=== PATIENT | female | born 1990 | race African-American/Black ===

== ENCOUNTER 2016-09-18 15:41 | Emergency (ER) | payer OTHER ==
[~2016-09-18] VITALS: Ht 170.2 cm; Wt 60.3 kg
[~2016-09-18 15:41] MED LIST: HYDR-2666 PO
[2016-09-18 16:20] VITALS: BP 125/66
--- NOTE | 2016-09-18 16:49 | PHYS DOC ---
Past Medical History Past Medical History: Other Additional Past Medical Histor: miscarriage Past Surgical History: Other Additional Past Surgical Histo: D&C, cerclage Alcohol Use: None Drug Use: None Adult General Chief Complaint Chief Complaint: VAGINAL BLEEDING HPI HPI Patient is a 26 year old female who presents with complaint of vaginal bleeding that happened last week. Patient states that she has not had any bleeding in the past 9 days. Patient states her last menstrual period was in the "middle of June" of this year. The patient mainly came to the emergency department to make sure that her baby was okay. Patient is A3. Patient states that she took a confirmatory test at [facility] but has not had any care for her current . Patient denies any cramping, abnormal vaginal discharge, pain, bleeding, shortness of breath, or fever. Review of Systems Review of Systems Constitutional: Denies fever or chills [] Eyes: Denies change in visual acuity, redness, or eye pain [] HENT: Denies nasal congestion or sore throat [] Respiratory: Denies cough or shortness of breath [] Cardiovascular: Denies chest pain or edema [] GI: Denies abdominal pain, nausea, vomiting, bloody stools or diarrhea [] : Vaginal bleeding 1 week ago, currently resolved, Denies dysuria or hematuria [] Musculoskeletal: Denies back pain or joint pain [] Integument: Denies rash or skin lesions [] Neurologic: Denies headache, focal weakness or sensory changes [] Allergies Allergies Allergies Coded Allergies Type Severity Reaction Last Updated Verified No Known Drug Allergies 11/07/13 No Physical Exam Physical Exam Constitutional: Well developed, well nourished, no acute distress, non-toxic appearance. [] HENT: Normocephalic, atraumatic, bilateral external ears normal, oropharynx moist, no oral exudates, nose normal. [] Eyes: PERRLA, EOMI, conjunctiva normal, no discharge. [] Neck: Normal range of motion, no tenderness, supple, no stridor. [] Cardiovascular:Heart rate regular rhythm, no murmur [] Lungs & Thorax: Bilateral breath sounds clear to auscultation [] Abdomen: Bowel sounds normal, soft, no tenderness, no masses, no pulsatile masses. Pelvic: Declined by patient [] Skin: Warm, dry, no erythema, no rash. [] Back: No tenderness, no CVA tenderness. [] Extremities: No tenderness, no cyanosis, no clubbing, ROM intact, no edema. [] Neurologic: Alert and oriented X 3, normal motor function, normal sensory function, no focal deficits noted. [] Current Patient Data Vital Signs Vital Signs Date Time Temp Pulse Resp B/P Pulse Ox O2 Delivery O2 Flow Rate FiO2 09/18/16 16:20 101 19 125/66 98 Room Air 09/18/16 16:06 98.8 98.8 Lab Values Laboratory Tests Test 09/18/16 15:27 09/18/16 16:15 POC Urine HCG, Qualitative Hcg positive (Negative) Urine Collection Type Unknown Urine Color Yellow Urine Clarity Clear Urine pH 8.5 Urine Specific [place] 1.020 Urine Protein 30mg/dL (NEG-TRACE) Urine Glucose (UA) Negativemg/dL (NEG) Urine Ketones (Stick) Negativemg/dL (NEG) Urine Blood Negative (NEG) Urine Nitrite Negative (NEG) Urine Bilirubin Negative (NEG) Urine Urobilinogen Dipstick 1.0mg/dL (0.2 mg/dL) Urine Leukocyte Esterase Negative (NEG) Urine RBC 0/HPF (0-2) Urine WBC 1-4/HPF (0-4) Urine Squamous Epithelial Cells Mod/LPF Urine Bacteria Few/HPF (0-FEW) Urine Mucus Slight/LPF EKG EKG Not performed [] Radiology/Procedures Radiology/Procedures Limited transabdominal bedside ultrasound performed and interpreted by myself: Intrauterine , heart rate 176 bpm, frequent movements [] Course & Med Decision Making Course & Med Decision Making Pertinent Labs and Imaging studies reviewed. (See chart for details) The patient is approximately 3 months at this time based off of last menstrual period. The patient's urine showed few bacteria without evidence of nitrite or leukoesterase and did contain squamous cells. I believe that the bacteria is likely a contaminant as patient denies any urinary symptoms at this time. We will withhold treatment with antibiotics and advised patient to follow- up in 1-[address] Dyer of [facility] for further care. Advised return emergency department for any worsening symptoms. Patient was understanding and in agreement with treatment plan. Dragon Disclaimer Dragon Disclaimer This electronic medical record was generated, in whole or in part, using a voice recognition dictation system. Departure Departure Impression: Primary Impression: Intrauterine normal Disposition: HOME, SELF-CARE Condition: GOOD Referrals: NO PCP (PCP) MARQUIS DYER MD Patient Instructions: Additional Instructions: Follow-up Dr. Dyer in one to 2 weeks. Be sure to start on a daily vitamin. This can be purchased [id number] at any pharmacy. Be sure that the vitamin contains an iron supplement. Ask your pharmacist if you have any difficulty identifying an appropriate vitamin. Return to the emergency department for any worsening symptoms. Problem Qualifiers Primary Impression: Intrauterine normal Trimester: first trimester Qualified Code: Z34.91 - Encounter for supervision of normal , unspecified, first trimester LOVE PINTO MD Sep 18, 2016 16:49
[2016-09-18 16:53] LABS: BILIRUBIN,URINE NEGATIVE (NEG); GLUCOSE,URINE NEGATIVE (NEG); NITRITE,URINE NEGATIVE (NEG); PH,URINE 8.5; PROTEIN,URINE 30 mg/dL (NEG-TRACE)
[2016-09-18 17:21] LABS: BACTERIA,URINE FEW /HPF (0-FEW); RBC,URINE 0 /HPF (0-2); SQUAMOUS EPITHELIAL CELL,UR MOD /LPF
== END 2016-09-18 17:34 | disposition home or self-care (01) ==
LOC: ER 15:41
DX: O46.91 Antepartum hemorrhage, unspecified, first trimester (principal); Z3A.12 12 weeks gestation of pregnancy
CPT/HCPCS: 81001; 81025; 99285-25

== ENCOUNTER 2017-12-12 16:44 | Emergency (ER) | payer SELFPAY, OTHER ==
[2017-12-12 18:02] LABS: ADD MAN DIFF? NO
[2017-12-12 18:05] LABS: URINE HCG POC HCG NEGATIVE (Negative)
[2017-12-12 18:07] LABS: BASO % 1 % (0-3); EOS # 0.1 x10^3/uL (0.0-0.7); EOS % 1 % (0-3); HEMATOCRIT 43.4 % (36.0-47.0); HEMOGLOBIN 14.6 g/dL (12.0-15.5); LYMPH # 2.1 x10^3/uL (1.0-4.8); LYMPH % 32 % (24-48); MEAN CORPUSCULAR HEMOGLOBIN 33 pg (25-35); MEAN CORPUSCULAR HGB CONC 34 g/dL (31-37); MEAN CORPUSCULAR VOLUME 97 fL (79-100); MONO # 0.5 x10^3/uL (0.0-1.1); MONO % 8 % (0-9); NEUT % 59 % (31-73); PLATELET COUNT 201 x10^3/uL (140-400); RED BLOOD COUNT 4.47 x10^6/uL (3.50-5.40); RED CELL DISTRIBUTION WIDTH 14.3 % (11.5-14.5); WHITE BLOOD COUNT 6.8 x10^3/uL (4.0-11.0)
== END 2017-12-12 20:58 | disposition home or self-care (01) ==
LOC: ER 16:44
DX: N93.8 Other specified abnormal uterine and vaginal bleeding (principal)
CPT/HCPCS: 36415; 81025; 85025; 99283

== ENCOUNTER 2019-03-31 16:05 | Emergency (ER) | payer SELFPAY ==
[~2019-03-31] VITALS: Ht 170.2 cm; Wt 55.8 kg
[~2019-03-31 16:05] MED LIST changes: +AMOX875T PO; -HYDR-2666 PO; +HYDR-2761 PO
--- NOTE | 2019-03-31 16:36 | PHYS DOC ---
Past Medical History Past Medical History: Other Additional Past Medical Histor: miscarriage Past Surgical History: Other Additional Past Surgical Histo: D&C, cerclage Alcohol Use: Occasionally Drug Use: None Adult General Chief Complaint Chief Complaint: ABDOMINAL PAIN HPI HPI 29 female presents to the ER with complaints of left lower quadrant abdominal pain, described as a dull pain. She denies any nausea, vomiting, fever, dysuria, change in bowel habits. She denies any vaginal discharge as well. She states the pain started approximately one month ago been somewhat progressive. Last menstrual period 1 week ago. Nothing makes her pain worse, nothing makes her pain improved. Review of Systems Review of Systems Constitutional: Denies fever or chills [] HENT: Denies nasal congestion or sore throat [] Respiratory: Denies cough or shortness of breath [] Cardiovascular: No additional information not addressed in HPI [] GI: + abdominal pain, no nausea, vomiting, bloody stools or diarrhea [] : Denies dysuria or hematuria [] Musculoskeletal: Denies back pain or joint pain [] Integument: Denies rash or skin lesions [] Neurologic: Denies headache, focal weakness or sensory changes [] All other systems were reviewed and found to be within normal limits, except as documented in this note. Current Medications Current Medications Current Medications Medications (Trade) Dose Ordered Sig/[facility] Start Time Stop Time Status Last Admin Dose Admin Ketorolac Tromethamine (Toradol 30mg Vial) 30 mg 1X ONCE 03/31/19 16:45 03/31/19 16:46 DC 03/31/19 16:51 30 MG Allergies Allergies Allergies Coded Allergies Type Severity Reaction Last Updated Verified No Known Drug Allergies 11/07/13 No Physical Exam Physical Exam Constitutional: Well developed, well nourished, no acute distress, non-toxic appearance. [] HENT: Normocephalic, atraumatic, bilateral external ears normal, oropharynx moist, no oral exudates, nose normal. [] Eyes: PERRLA, EOMI, conjunctiva normal, no discharge. [] Cardiovascular:Heart rate regular rhythm, no murmur [] Lungs & Thorax: Bilateral breath sounds clear to auscultation [] Abdomen: TTP left lower quadrant, no rebound appreciated [] Skin: Warm, dry, no erythema, no rash. [] Back: No tenderness, no CVA tenderness. [] Extremities: No tenderness, no cyanosis, no clubbing, ROM intact, no edema. [] Neurologic: Alert and oriented X 3, no focal deficits noted. [] Psychologic: Affect normal, judgement normal, mood normal. [] Current Patient Data Vital Signs Vital Signs Date Time Temp Pulse Resp B/P (MAP) Pulse Ox O2 Delivery O2 Flow Rate FiO2 03/31/19 16:33 98.7 90 16 100/58 (72) 100 Room Air 98.7 Lab Values Laboratory Tests Test 03/31/19 16:19 03/31/19 16:20 03/31/19 16:44 POC Urine HCG, Qualitative Hcg negative (Negative) Urine Collection Type Void Urine Color Dk yellow Urine Clarity Clear Urine pH 6.5 Urine Specific [place] 1.025 Urine Protein 30 mg/dL (NEG-TRACE) Urine Glucose (UA) 250 mg/dL (NEG) Urine Ketones (Stick) 40 mg/dL (NEG) Urine Blood Negative (NEG) Urine Nitrite Negative (NEG) Urine Bilirubin Negative (NEG) Urine Urobilinogen Dipstick 1.0 mg/dL (0.2 mg/dL) Urine Leukocyte Esterase Small (NEG) Urine RBC 0 /HPF (0-2) Urine WBC 1-4 /HPF (0-4) Urine Squamous Epithelial Cells Many /LPF Urine Bacteria Many /HPF (0-FEW) Urine Mucus Marked /LPF White Blood Count 9.8 x10^3/uL (4.0-11.0) Red Blood Count 4.30 x10^6/uL (3.50-5.40) Hemoglobin 13.8 g/dL (12.0-15.5) Hematocrit 40.5 % (36.0-47.0) Mean Corpuscular Volume 94 fL (79-100) Mean Corpuscular Hemoglobin 32 pg (25-35) Mean Corpuscular Hemoglobin Concent 34 g/dL (31-37) Red Cell Distribution Width 14.0 % (11.5-14.5) Platelet Count 248 x10^3/uL (140-400) Neutrophils (%) (Auto) 72 % (31-73) Lymphocytes (%) (Auto) 17 % (24-48) L Monocytes (%) (Auto) 10 % (0-9) H Eosinophils (%) (Auto) 1 % (0-3) Basophils (%) (Auto) 1 % (0-3) Neutrophils # (Auto) 7.0 x10^3/uL (1.8-7.7) Lymphocytes # (Auto) 1.7 x10^3/uL (1.0-4.8) Monocytes # (Auto) 0.9 x10^3/uL (0.0-1.1) Eosinophils # (Auto) 0.1 x10^3/uL (0.0-0.7) Basophils # (Auto) 0.0 x10^3/uL (0.0-0.2) Sodium Level 142 mmol/L (136-145) Potassium Level 3.0 mmol/L (3.5-5.1) L Chloride Level 104 mmol/L (98-107) Carbon Dioxide Level 29 mmol/L (21-32) Anion Gap 9 (6-14) Blood Urea Nitrogen 5 mg/dL (7-20) L Creatinine 0.4 mg/dL (0.6-1.0) L Estimated GFR (Cockcroft-Gault) 228.3 BUN/Creatinine Ratio 13 (6-20) Glucose Level 101 mg/dL (70-99) H Calcium Level 8.8 mg/dL (8.5-10.1) Total Bilirubin 0.5 mg/dL (0.2-1.0) Aspartate Amino Transferase (AST) 35 U/L (15-37) Alanine Aminotransferase (ALT) 21 U/L (14-59) Alkaline Phosphatase 70 U/L (46-116) Total Protein 7.4 g/dL (6.4-8.2) Albumin 3.5 g/dL (3.4-5.0) Albumin/Globulin Ratio 0.9 (1.0-1.7) L Laboratory Tests 03/31/19 16:44 Laboratory Tests 03/31/19 16:44 EKG EKG [] Radiology/Procedures Radiology/Procedures [facility] [address] [place] [address] IMAGING REPORT Signed PATIENT: ANITRA ANTONIO LACCOUNT: [id number] : 1990 LOCATION: ER AGE: 29 SEX: F EXAM STATUS: REG ER ORD. PHYSICIAN: ANN KWOK MD REASON: left lower quadrant abdominal pain PROCEDURE: PELVIS ULTRASOUND Pelvic ultrasound 03/31/2019 CLINICAL HISTORY: Left-sided pelvic pain. TECHNIQUE: Using the distended urinary bladder as a sonographic window, a real-time ultrasound examination of the pelvis was performed. Multiple images were obtained. FINDINGS: The uterus is enlarged. It measures 18.3 x 15.6 x 10.1 cm in longitudinal, transverse, and AP dimensions. Several hypoechoic masses are seen scattered throughout the uterus consistent with uterine fibroids. These measure 6.5 to 8.8 cm in size. The endometrial echo complex is obscured by the fibroids. The right ovary is not visualized. The left ovary is normal in size. It measures 5.0 x 4.0 x 3.5 cm in size. Within the left ovary an oval-shaped anechoic structure is seen which measures 3.8 cm in greatest diameter. This is consistent with a cyst. No free fluid is noted. IMPRESSION: 1. Enlarged fibroid uterus. 2. 3.8 cm left ovarian cyst. Electronically signed by: Misael Santamaria MD (03/31/2019 5:31 PM) [facility] DICTATED and SIGNED BY: MISAEL SANTAMARIA MD DATE: 03/31/191730 [] Course & Med Decision Making Course & Med Decision Making Pertinent Labs and Imaging studies reviewed. (See chart for details) []29 female presents to the ER with complaints of left lower quadrant abdominal pain, described as a dull pain. She denies any nausea, vomiting, fever, dysuria, change in bowel habits. She denies any vaginal discharge as well. She states the pain started approximately one month ago been somewhat progressive. Last m enstrual period 1 week ago. Nothing makes her pain worse, nothing makes her pain improved. Labs reviewed - no acute findings US reveals left ovarian cyst Discussed findings with patient Recommend dc and follow up with PCP Ki[place] Disclaimer Kiko Disclaimer This electronic medical record was generated, in whole or in part, using a voice recognition dictation system. Departure Departure Impression: Primary Impression: Left ovarian cyst Disposition: 01 HOME, SELF-CARE Condition: STABLE Referrals: NO PCP (PCP) Patient Instructions: Ovarian Cyst Additional Instructions: Recommend follow up with PCP 3 - 5 days Return to the ER with worsening symptoms, intractable pain, fever, altered mental status Tylenol/Motrin as needed for pain ANN KWOK MD Mar 31, 2019 16:36
[2019-03-31 16:43] LABS: BILIRUBIN,URINE NEGATIVE (NEG); CLARITY,URINE CLEAR; NITRITE,URINE NEGATIVE (NEG); PH,URINE 6.5; PROTEIN,URINE 30 mg/dL (NEG-TRACE)
[2019-03-31] MEDS ORDERED: KETOROLAC 30 MG/ML VIAL. IV ONE (16:45)
[2019-03-31 16:51] LABS: BASO % 1 % (0-3); EOS # 0.1 x10^3/uL (0.0-0.7); EOS % 1 % (0-3); HEMATOCRIT 40.5 % (36.0-47.0); HEMOGLOBIN 13.8 g/dL (12.0-15.5); LYMPH # 1.7 x10^3/uL (1.0-4.8); LYMPH % 17 % (24-48); MEAN CORPUSCULAR HEMOGLOBIN 32 pg (25-35); MEAN CORPUSCULAR HGB CONC 34 g/dL (31-37); MEAN CORPUSCULAR VOLUME 94 fL (79-100); MONO # 0.9 x10^3/uL (0.0-1.1); MONO % 10 % (0-9); NEUT % 72 % (31-73); PLATELET COUNT 248 x10^3/uL (140-400); WHITE BLOOD COUNT 9.8 x10^3/uL (4.0-11.0)
[2019-03-31 16:56] LABS: COLOR,URINE DK YELLOW
[2019-03-31 16:59] LABS: BACTERIA,URINE MANY /HPF (0-FEW); RBC,URINE 0 /HPF (0-2); SQUAMOUS EPITHELIAL CELL,UR MANY /LPF
[2019-03-31 17:09] LABS: CALCIUM 8.8 mg/dL (8.5-10.1); CREATININE 0.4 mg/dL (0.6-1.0); GFR 228.3
[2019-03-31 17:16] LABS: ALBUMIN 3.5 g/dL (3.4-5.0); ALBUMIN/GLOBULIN RATIO 0.9 (1.0-1.7); TOTAL BILIRUBIN 0.5 mg/dL (0.2-1.0); TOTAL PROTEIN 7.4 g/dL (6.4-8.2)
--- NOTE | 2019-03-31 17:34 | RAD ---
Pelvic ultrasound 03/31/2019 CLINICAL HISTORY: Left-sided pelvic pain. TECHNIQUE: Using the distended urinary bladder as a sonographic window, a real-time ultrasound examination of the pelvis was performed. Multiple images were obtained. FINDINGS: The uterus is enlarged. It measures 18.3 x 15.6 x 10.1 cm in longitudinal, transverse, and AP dimensions. Several hypoechoic masses are seen scattered throughout the uterus consistent with uterine fibroids. These measure 6.5 to 8.8 cm in size. The endometrial echo complex is obscured by the fibroids. The right ovary is not visualized. The left ovary is normal in size. It measures 5.0 x 4.0 x 3.5 cm in size. Within the left ovary an oval-shaped anechoic structure is seen which measures 3.8 cm in greatest diameter. This is consistent with a cyst. No free fluid is noted. IMPRESSION: 1. Enlarged fibroid uterus. 2. 3.8 cm left ovarian cyst. Electronically signed by: Misael Zee MD (03/31/2019 5:31 PM) [facility]
[2019-03-31 17:40] VITALS: BP 106/70
== END 2019-03-31 17:52 | disposition home or self-care (01) ==
LOC: ER 16:05
DX: N83.202 Unspecified ovarian cyst, left side (principal)
CPT/HCPCS: 36415; 76856; 80053; 81001; 81025; 85025; 87086; 96374; 99285; J1885